=== PATIENT | male | born 1940 | race Caucasian/White ===

== ENCOUNTER 2022-03-06 10:40 | Emergency (ER) | payer OTHER ==
[~2022-03-06] VITALS: Ht 177.8 cm; Wt 89.4 kg
[2022-03-06] MEDS ORDERED: ALBUTEROL SULF 2.5 MG/0.5ML(0.5%) NEB SOLN NEB ONE (11:30)
[2022-03-06] MEDS ORDERED: methylPREDNISolone SOD SUCC 125 MG/2 ML VL IV ONE (11:30)
[2022-03-06] MEDS ORDERED: IPRATROPIUM BROM 0.5 MG/2.5ML INH SOL NEB ONE (11:30)
[2022-03-06 12:12] LABS: Basophils # (auto) 0 10 ^3/uL (0-0.2); Basophils % (auto) 0.2 % (0.0-2.0); Eosinophils # (auto) 0.1 10 ^3/uL (0-0.8); Eosinophils % (auto) 0.5 % (0.0-7.0); Hematocrit 40.9 % (41.0-53.0); Hemoglobin 13.9 g/dL (13.5-17.5); Lymphocytes # (auto) 3.1 10 ^3/uL (0.4-5.4); Lymphocytes % (auto) 19.1 % (10.0-50.0); Mean Corpuscular Hemoglobin 31.6 pg (28.0-32.0); Mean Corpuscular Volume 93.1 fL (80.0-100.0); Neutrophils % (auto) 61.6 % (37.0-80.0); Nucleated Red Blood Cells % 0.1 %; Red Cell Distribution Width 17.4 % (11.8-14.3); White Blood Cell 16.2 10^3/uL (4.4-10.8)
[2022-03-06 12:32] LABS: Monocytes % (auto) 18.6 % (0.0-12.0)
[2022-03-06 12:34] LABS: BUN/Creatinine Ratio 20.3; Bilirubin, Total 0.3 mg/dL (0.2-1.0); Total Protein 7.7 g/dL (6.4-8.2)
[2022-03-06 13:07] LABS: Urine Bacteria NONE SEEN /hpf (None Seen); Urine Blood Negative /uL (Negative); Urine Mucus FEW (None Seen); Urine Specific Gravity 1.032 (1.001-1.035); Urine WBC 1 /hpf (0 - 3)
[2022-03-06 14:46] VITALS: BP 109/74
== END 2022-03-06 15:05 | disposition short-term general hospital (02) ==
LOC: EDBD 10:40 → ER 10:40
DX: J44.1 Chronic obstructive pulmonary disease with (acute) exacerbation (principal); Z20.822 Contact with and (suspected) exposure to COVID-19
CPT/HCPCS: 36415; 71045; 80053; 81001; 84484; 85025; 87426; 93005; 94640; 96374; 99291; J2930; J7644